=== PATIENT | female | born 1950 | race Caucasian/White ===

== ENCOUNTER 2016-07-02 11:29 | Emergency (ER) | payer OTHER ==
[~2016-07-02] VITALS: Ht 157.5 cm; Wt 63.0 kg
[2016-07-02 12:15] VITALS: BP 118/71
[2016-07-02 14:08] LABS: INFLUENZA TYPE B NEGATIVE FOR TYPE B (NEGATIVE)
[2016-07-02] MEDS ORDERED: DEXAMETHASONE SOD PHOS 4 MG/ML VIAL IM ONE (14:30)
== END 2016-07-02 14:52 | disposition home or self-care (01) ==
LOC: EMS 11:30
DX: J40 Bronchitis, not specified as acute or chronic (principal); R05 Cough; J06.9 Acute upper respiratory infection, unspecified; Z88.6 Allergy status to analgesic agent; F17.210 Nicotine dependence, cigarettes, uncomplicated
CPT/HCPCS: 71020; 87804; 96372; 99285; J1100